=== PATIENT | female | born 1985 | race Caucasian/White ===

== ENCOUNTER 2019-03-03 15:18 | Emergency (ER) | payer MEDICAID ==
[~2019-03-03] VITALS: Ht 162.6 cm; Wt 68.9 kg
[2019-03-03 15:25] VITALS: Ht 162.6 cm; Wt 68.9 kg
[2019-03-03 17:21] LABS: UA SPECIFIC GRAVITY >=1.030 (1.005-1.035); microscopic required? YES; urine erythrocyte NEGATIVE (NEGATIVE)
[2019-03-03 18:10] VITALS: BP 123/84
== END 2019-03-03 18:11 | disposition home or self-care (01) ==
LOC: ED 15:18
PROVIDERS: Emergency Medicine
DX: N39.0 Urinary tract infection, site not specified (principal); Z88.0 Allergy status to penicillin; Z88.8 Allergy status to other drugs, medicaments and biological substances; Z88.5 Allergy status to narcotic agent; Z90.49 Acquired absence of other specified parts of digestive tract

== ENCOUNTER 2019-05-07 08:20 | Emergency (ER) | payer MEDICAID ==
[~2019-05-07] VITALS: Ht 162.6 cm; Wt 68.0 kg
[2019-05-07 08:32] VITALS: Ht 162.6 cm; Wt 68.0 kg
[2019-05-07 09:19] VITALS: BP 118/66
== END 2019-05-07 09:19 | disposition home or self-care (01) ==
LOC: ED 08:20
DX: H66.91 Otitis media, unspecified, right ear (principal); J06.9 Acute upper respiratory infection, unspecified; Z88.0 Allergy status to penicillin; Z88.5 Allergy status to narcotic agent; Z88.8 Allergy status to other drugs, medicaments and biological substances

== ENCOUNTER 2019-05-17 18:40 | Emergency (ER) | payer MEDICAID ==
[~2019-05-17] VITALS: Ht 162.6 cm; Wt 67.6 kg
[2019-05-17 19:34] VITALS: Ht 162.6 cm; Wt 67.6 kg
[2019-05-17 22:11] VITALS: BP 129/61
== END 2019-05-17 22:11 | disposition home or self-care (01) ==
LOC: ED 18:40
DX: R51 Headache (principal); Z90.49 Acquired absence of other specified parts of digestive tract; Z88.0 Allergy status to penicillin; Z88.5 Allergy status to narcotic agent